=== PATIENT | female | born 1965 | race Caucasian/White ===

== ENCOUNTER → 2017-05-26 | Outpatient (CLI) | payer OTHER ==
--- NOTE | 2017-05-26 18:10 | Diagnostic Imaging Report ---
#[id number] - MGSCRBIL #BILATERAL FIRST EVER DIGITAL SCREENING MAMMOGRAM WITH CAD: 05/26/2017 CLINICAL: Routine screening. Baseline examination. No prior exams were available for comparison. Current study contains 4 films. The tissue of both breasts is heterogeneously dense. This may lower the sensitivity of mammography. Current study was also evaluated with a Computer Aided Detection (CAD) system. There is a possible mass in the right breast anterior depth lateral region seen on the craniocaudal view only; this is highlighted by CAD analysis. There is a mass in the left breast at 1 o'clock posterior depth; this resembles a lymph node. Scattered benign calcifications are present bilaterally. No other significant masses or calcifications are seen in either breast. IMPRESSION: INCOMPLETE: NEEDS ADDITIONAL IMAGING EVALUATION The possible mass in the right breast anterior depth lateral region seen on the craniocaudal view only is indeterminate. Additional views with possible ultrasound are recommended. The mass in the left breast at 1 o'clock posterior depth is indeterminate. Additional views with possible ultrasound are recommended. The patient will be contacted by the Mammography Department to schedule this appointment. Octavio Austin Jr., D.O. cw/:05/26/2017 12:39:34 Mems Engineer: Kay BROWER)(Darinel), [facility] letter sent: Additional Imaging Needed Mammogram BI-RADS: 0 Indeterminate
== END ==
LOC: MAMMO 08:26
PROVIDERS: ATTEND Internal Medicine
DX: Z12.31 Encounter for screening mammogram for malignant neoplasm of breast (principal)
CPT/HCPCS: 77067

== ENCOUNTER → 2017-06-08 | Outpatient (CLI) | payer OTHER ==
--- NOTE | 2017-06-08 16:08 | Diagnostic Imaging Report ---
#[id number] - MGDXBIL #BILATERAL DIGITAL DIAGNOSTIC MAMMOGRAM WITH SPOT COMPRESSION: 06/08/2017 Comparison is made to exam dated: 05/26/2017 mammogram - [facility]. Current study contains 7 films. The tissue of both breasts is heterogeneously dense. This may lower the sensitivity of mammography. Focal spot compression of the right breast area of interest reveals no abnormality of significance. Focal spot comression of a 1 cm oval mass in the left breast at 1 o'clock posterior depth. This resembles a lymph node or a cyst but is indeterminate. A single benign calcification in the right breast is noted. No other significant masses, calcifications, or other findings are seen in either breast. IMPRESSION: INCOMPLETE: NEEDS ADDITIONAL IMAGING EVALUATION The 1 cm oval mass in the left breast is indeterminate. An ultrasound is recommended and will be performed today. Octavio Austin Jr., D.O. cw/:06/08/2017 13:22:10 Construction Rigger: Kay MIKE(R)(M), [facility] letter sent: Additional Imaging Needed Mammogram BI-RADS: 0 Indeterminate
--- NOTE | 2017-06-08 16:08 | Diagnostic Imaging Report ---
#[id number] - USBRELIMLT ULTRASOUND OF THE LEFT BREAST : 06/08/2017 Comparison is made to exams dated: 06/08/2017 mammogram and 05/26/2017 mammogram - [facility]. Color flow and real-time ultrasound were performed on the left breast in the area of interest in the upper outer aspect. No mass, lymph node or cyst is noted that would correspond to the mammographic finding. IMPRESSION: PROBABLY BENIGN - FOLLOW-UP RECOMMENDED A follow-up mammogram in 6 months is recommended to demonstrate stability. The patient was notified of the need for mammographic followup as the finding is not demonstrated on todays ultrasound. Octavio Austin Jr., D.O. cw/:06/08/2017 13:28:35 Real Estate Sales Associate: TAMICA JAMES, [facility] letter sent: Followup Recommended Ultrasound BI-RADS: 3 Probably benign
== END ==
LOC: MAMMO 08:12
PROVIDERS: ATTEND Internal Medicine
DX: N63.20 Unspecified lump in the left breast, unspecified quadrant (principal)
CPT/HCPCS: 77066

== ENCOUNTER → 2017-06-28 | Day surgery (SDC) | payer OTHER ==
[~2017-06-28] MED LIST: LIDOCAINE HCL 2% LOCAL INJ 5 ML SDV VIAL INJ ONE; LISINOPRIL10 MG PO; MIDAZOLAM HCL 2 MG/2 ML VIAL ONE; PROPOFOL IV EMULSION 10 MG/ML 20 ML VIAL ONE
--- OUTSIDE RECORDS SUMMARY | 2017-06-28 10:07 | XMS REPORT | Clinical Summary ---
Author Author [facility] [employer] [place] [employer] Address Unknown Phone Unavailable Care Team Providers Care Aircraft Maintenance Technician Name Role Phone Durga Sanford MD PCP Allergies Active Allergy Reactions Severity Noted Date Comments Penicillins Hives Medium 02/24/2017 Current Medications Prescription Sig. Disp. Refills Start End Date Status Date lisinopril Take 10 mg by mouth every 02/23/20 Active (PRINIVIL,ZESTRIL) 10 mg morning. 17 tablet levoFLOXacin (LEVAQUIN) Take 1 tablet (750 mg 5 tablet 0 03/01/20 750 MG tablet total) by mouth daily for 17 17 5 days. Active Problems Problem Noted Date Pneumonia 02/27/2017 Influenza A 02/24/2017 Encounters Date Type Specialty Care Team Description 02/24/2017 [facility] General Internal Medicine Kwasi Foster MD Influenza A (Primary Dx); - Encounter Larissa Begum MD Pneumonia of left lower 03/01/2017 Greg Hallman MD lobe due to influenza A virus after 06/27/2016 Social History Tobacco Use Types Packs/Day Years Used Date Never Smoker Smokeless Tobacco: Never Used Alcohol Use Drinks/Week oz/Week Comments Yes occasionally Sex Assigned at Date Recorded Not on file Last Filed Vital Signs Vital Sign Reading Time Taken Blood Pressure 135/85 03/01/2017 6:56 AM DELICATESSEN CLERK Pulse 81 03/01/2017 3:20 PM DELICATESSEN CLERK Temperature 36.8 C (98.3 F) 03/01/2017 6:56 AM DELICATESSEN CLERK Respiratory Rate 16 03/01/2017 3:20 PM DELICATESSEN CLERK Oxygen Saturation 97% 03/01/2017 3:13 PM DELICATESSEN CLERK Inhaled Oxygen - - Concentration Weight 139 kg (307 lb) 02/24/2017 11:32 AM DELICATESSEN CLERK Height 162.6 cm (5' 4") 02/24/2017 11:32 AM DELICATESSEN CLERK Body Mass Index 52.7 02/24/2017 11:32 AM DELICATESSEN CLERK Plan of Treatment Health Maintenance Due Date Last Done Comments PAP SMEAR 12/04/1987 COLONOSCOPY 2016 MAMMOGRAM 2016 INFLUENZA VACCINE 10/11/2017 Results * POC glucose (03/01/2017 5:53 AM) Only the most recent of 9 results within the time period is included. Component Value Ref Range POC glucose 101 (H) 65 - 99 mg/dL Comment: Meter ID: [id number] Coremaker Machine: Araceli Abreu Specimen Performing Laboratory [facility] DEPARTMENT OF PATHOLOGY AND GENOMIC MEDICINE [address] [place] [address] * Blood culture, aerobic & anaerobic (02/28/2017 10:11 AM) Only the most recent of 4 results within the time period is included. Component Value Ref Range Blood culture isolate No growth after 5 days of incubation. Comment: Specimen Information Specimen Source: Blood Specimen Site: Arm, right Specimen Performing Laboratory Blood - Arm, right [facility] DEPARTMENT OF PATHOLOGY AND GENOMIC MEDICINE [address] [place] [address] * MRSA screen culture (02/27/2017 1:43 PM) Component Value Ref Range MRSA screen culture No Methicillin Resistant Staphylococcus aureus isolate isolated. Comment: Specimen Information Specimen Source: Nares Specimen Site: Left Specimen Performing Laboratory Nares - Left [facility] DEPARTMENT OF PATHOLOGY AND GENOMIC MEDICINE [address] [place] [address] * Streptococcus pneumoniae urinary antigen (02/27/2017 1:42 PM) Component Value Ref Range Strep pneumo urinary Ag Negative for Streptococcus pneumoniae antigen. Comment: Specimen Information Specimen Source: Urine Specimen Site: Urine, clean catch Specimen Performing Laboratory Urine - Urine, clean [facility] DEPARTMENT OF PATHOLOGY AND GENOMIC MEDICINE catch [address] [place] [address] * Legionella urinary antigen (02/27/2017 1:42 PM) Component Value Ref Range Legionella urinary Negative for Legionella serogroup 1 antigen. antigen Comment: Specimen Information Specimen Source: Urine Specimen Site: Urine, clean catch Specimen Performing Laboratory Urine - Urine, clean [facility] OF PATHOLOGY [place] [address] * Estimated GFR (02/27/2017 5:40 AM) Only the most recent of 4 results within the time period is included. Component Value Ref Range GFR Non Af Amer >90 mL/min/1.73 m2 GFR Af Amer >90 mL/min/1.73 m2 Comment: Chronic kidney disease: <60 mL/min/1.73m2 Kidney failure: <15 mL/min/1.73m2 The estimated GFR is calculated from the IDMS-traceable Modification of Diet in Renal Disease Equation. The accuracy of the calculation is poor when the creatinine is normal. Calculated values >90 mL/min/1.73m2 are not reported. This equation has not been validated in children (<18 years), women, the elderly (>70 years), or ethnic groups other than Caucasians and Americans. Specimen Performing Laboratory Plasma specimen [facility] DEPARTMENT OF PATHOLOGY AND GENOMIC MEDICINE [id number] [place] [address] [place] [address] * Manual differential (02/27/2017 5:40 AM) Only the most recent of 2 results within the time period is included. Component Value Ref Range Manual differential PERFORMED Neutrophils 89.0 (H) 39.0 - 69.0 % Lymphocytes 8.0 (L) 25.0 - 45.0 % Monocytes 3.0 0.0 - 10.0 % Eosinophils 0.0 0.0 - 5.0 % Basophils 0.0 0.0 - 1.0 % Metamyelocytes 0 % Promyelocytes 0 % Platelet slide review adequate Specimen Performing Laboratory [facility] DEPARTMENT OF PATHOLOGY AND GENOMIC MEDICINE [address] [place] [address] * CBC with platelet and differential (02/27/2017 5:40 AM) Only the most recent of 4 results within the time period is included. Component Value Ref Range WBC 7.72 4.50 - 11.00 k/uL RBC 3.84 (L) 4.20 - 5.50 m/uL HGB 10.8 (L) 12.0 - 16.0 g/dL HCT 32.3 (L) 37.0 - 47.0 % MCV 84.1 82.0 - 100.0 fL MCH 28.1 27.0 - 34.0 pg MCHC 33.4 31.0 - 37.0 g/dL RDW - SD 45.9 37.0 - 55.0 fL MPV 8.9 8.8 - 13.2 fL Platelet count 191 150 - 400 k/uL Nucleated RBC 0.00 /100 WBC Neutrophils 89.0 (H) 39.0 - 69.0 % Lymphocytes 8.0 (L) 25.0 - 45.0 % Monocytes 3.0 0.0 - 10.0 % Eosinophils 0.0 0.0 - 5.0 % Basophils 0.0 0.0 - 1.0 % Specimen Performing Laboratory Blood [facility] PATHOLOGY AND [address] [place] [address] * Magnesium level (02/27/2017 5:40 AM) Only the most recent of 4 results within the time period is included. Component Value Ref Range Magnesium 2.0 1.6 - 2.6 mg/dL Specimen Performing Laboratory Plasma specimen [address] [place] [address] * Basic metabolic panel (02/27/2017 5:40 AM) Only the most recent of 3 results within the time period is included. Component Value Ref Range Sodium 136 135 - 148 mEq/L Potassium 3.8 3.5 - 5.0 mEq/L Chloride 101 98 - 112 mEq/L CO2 24 24 - 31 mEq/L Anion gap 11 7 - 15 mEq/L Comment: Starting from June , anion gap calculation no longer incorporates potassium. Please note the change. BUN 10 6 - 20 mg/dL Creatinine 0.5 0.5 - 0.9 mg/dL Glucose 114 (H) 65 - 99 mg/dL Calcium 8.3 8.3 - 10.2 mg/dL Specimen Performing Laboratory Plasma specimen [facility] PATHOLOGY [address] [place] [address] * FL Lumbar Puncture by Radiology (02/26/2017 4:45 PM) Specimen Performing Laboratory [address] [address] Narrative EXAMINATION:FL LUMBAR PUNCTURE REASON FOR EXAMINATION:Encephalitis, ENCEPHALOPATHY COMPARISON: None FINDINGS: After explanation of risk and benefits, the patient was brought to the vascular suite. An informed consent was obtained. The skin overlying the lumbar spine was prepped and draped in sterile manner. The skin was anesthetized with 1% lidocaine. Using fluoroscopic guidance, a 20-gauge spinal needle was introduced into the thecal sac at the level of L4. 12 cc of clear spinal fluid were obtained. Following completion of the procedure, the needle was removed. Hemostasis was obtained. There were no intraoperative complications. CONSCIOUS SEDATION: None Fluoroscopy time:0.75 minutes number of fluoroscopic images obtained: 1 The opening pressure was 14 cm of water. IMPRESSION: 1. Status post lumbar puncture. 2. The patient was given conscious sedation as described above. 3. Fluoroscopic guidance was used for this procedure. [facility]-[id number] Procedure Note [facility], Radiology Results Incoming - 02/27/2017 2:21 PM DELICATESSEN CLERK EXAMINATION: FL LUMBAR PUNCTURE REASON FOR EXAMINATION: Encephalitis, ENCEPHALOPATHY COMPARISON: None FINDINGS: After explanation of risk and benefits, the patient was brought to the vascular suite. An informed consent was obtained. The skin overlying the lumbar spine was prepped and draped in sterile manner. The skin was anesthetized with 1% lidocaine. Using fluoroscopic guidance, a 20-gauge spinal needle was introduced into the thecal sac at the level of L4. 12 cc of clear spinal fluid were obtained. Following completion of the procedure, the needle was removed. Hemostasis was obtained. There were no intraoperative complications. CONSCIOUS SEDATION: None Fluoroscopy time: 0.75 minutes number of fluoroscopic images obtained: 1 The opening pressure was 14 cm of water. IMPRESSION: 1. Status post lumbar puncture. 2. The patient was given conscious sedation as described above. 3. Fluoroscopic guidance was used for this procedure. [facility]-[id number] * CSF pathologist consult (02/26/2017 4:35 PM) Component Value Ref Range CSF pathologist consult DoneComment: per dr. fatima agree with cell count Specimen Performing Laboratory Cerebrospinal fluid [facility] DEPARTMENT OF PATHOLOGY AND GENOMIC MEDICINE [address] [place] [address] * AFB culture (02/26/2017 4:35 PM) Component Value Ref Range AFB culture isolate No growth after 6 weeks of incubation. Comment: Specimen Information Specimen Source: CSF (Spinal Fluid) Specimen Site: Lumbar puncture Specimen Performing Laboratory Cerebrospinal fluid - [facility] DEPARTMENT OF PATHOLOGY AND GENOMIC MEDICINE Lumbar puncture [address] [place] [address] * Cryptococcal antigen, screen (02/26/2017 4:35 PM) Component Value Ref Range Cryptococcal Ag Negative - No Cryptococcus antigen detected. Comment: Specimen Information Specimen Source: CSF (Spinal Fluid) Specimen Site: Lumbar puncture Specimen Performing Laboratory Cerebrospinal fluid [facility] DEPARTMENT OF PATHOLOGY AND GENOMIC MEDICINE [address] [place] [address] * Gram stain (02/26/2017 4:35 PM) Component Value Ref Range Gram stain isolate No WBC's or organisms seen. Comment: Specimen Information Specimen Source: CSF (Spinal Fluid) Specimen Site: Lumbar puncture Specimen Performing Laboratory Cerebrospinal fluid [facility] DEPARTMENT OF PATHOLOGY AND [facility] MEDICINE [address] [place] [address] * CSF culture (02/26/2017 4:35 PM) Component Value Ref Range CSF culture isolate No growth after 3 days. Comment: Specimen Information Specimen Source: CSF (Spinal Fluid) Specimen Site: Lumbar puncture Specimen Performing Laboratory Cerebrospinal fluid - [facility] DEPARTMENT OF PATHOLOGY AND [facility] Lumbar puncture [address] [place] [address] * Fungus culture (02/26/2017 4:35 PM) Component Value Ref Range Fungus culture isolate No growth after 4 weeks of incubation. Comment: Specimen Information Specimen Source: CSF (Spinal Fluid) Specimen Site: Lumbar puncture Specimen Performing Laboratory Cerebrospinal fluid - [facility] DEPARTMENT OF PATHOLOGY AND [facility] Lumbar puncture [address] [place] [address] * CSF cell count with differential (02/26/2017 4:35 PM) Component Value Ref Range Color, CSF Colorless Appearance, CSF Clear CSF supernatant Colorless RBC, CSF 0Comment: OTHER SIDE IS 0 0 - 1 /CMM WBC, CSF 1Comment: OTHER SIDE IS 0 0 - 5 /CMM CSF mononuclear cell 0/CMM Neutrophils, CSF 87 % Lymphocytes, CSF 13 % Specimen Performing Laboratory Cerebrospinal fluid [facility] DEPARTMENT PATHOLOGY [address] [place] [address] * Protein, CSF (02/26/2017 4:35 PM) Component Value Ref Range Protein, CSF 18 15 - 45 mg/dL Specimen Performing Laboratory Cerebrospinal fluid [facility] DEPARTMENT OF PATHOLOGY AND [address] [place] [address] * Glucose level, CSF (02/26/2017 4:35 PM) Component Value Ref Range Glucose, CSF 82 (H) 40 - 70 mg/dL Specimen Performing Laboratory Cerebrospinal fluid [facility] DEPARTMENT PATHOLOGY AND [address] [place] [place] [address] * Ammonia level (02/26/2017 1:25 PM) Component Value Ref Range Ammonia 23 11 - 51 umol/L Specimen Performing Laboratory Blood [facility] DEPARTMENT PATHOLOGY AND [address] [place] [place] [address] * Arterial blood gas (02/26/2017 12:26 PM) Component Value Ref Range pH, arterial 7.50 (H) 7.35 - 7.45 pCO2, arterial 30 (L) 35 - 45 mmHg pO2, arterial 56 (L) 80 - 90 mmHg Bicarbonate, arterial 24.7 21.0 - 28.0 mmol/L Base excess, arterial 1 -2 - 2 mEq/L O2 saturation, arterial 92 (L) 95 - 100 % FiO2, inspired O2% 36 % Specimen Performing Laboratory Blood [facility] DEPARTMENT OF PATHOLOGY AND GENOMIC MEDICINE [address] [place] [address] * CT Head Wo Contrast (02/26/2017 10:14 AM) Specimen Performing Laboratory [facility] [address] [place] [address] Narrative Examination: CT HEAD WO CONTRAST Clinical History: HEADACHE Comparison: NONE Technique: Multiple axial CT images of the brain are obtained without the use of intravenous contrast. CT scans are performed using radiation dose reduction techniques. Technical factors are evaluated and adjusted to ensure appropriate moderation of exposure. Automated dose management technology is applied to adjust radiation dose to minimize exposure, while achieving a diagnostic image. FINDINGS: The visualized paranasal sinuses are clear. The mastoid air cells are well aerated. The globes and optic nerves are unremarkable. The ventricles are symmetrical. There is no mass effect or any midline shift. There is no evidence of any extra-axial fluid collection. There is no parenchymal hemorrhage or mass lesion. There is maintenance of the man-white junction. The posterior fossa does not demonstrate any masses. IMPRESSION: 1. There Is no acute intracranial abnormality. [id number] Procedure Note Interface, Radiology Results Incoming - 02/26/2017 10:18 AM DELICATESSEN CLERK Examination: CT HEAD WO CONTRAST Clinical History: HEADACHE Comparison: NONE Technique: Multiple axial CT images of the brain are obtained without the use of intravenous contrast. CT scans are performed using radiation dose reduction techniques. Technical factors are evaluated and adjusted to ensure appropriate moderation of exposure. Automated dose management technology is applied to adjust radiation dose to minimize exposure, while achieving a diagnostic image. FINDINGS: The visualized paranasal sinuses are clear. The mastoid air cells are well aerated. The globes and optic nerves are unremarkable. The ventricles are symmetrical. There is no mass effect or any midline shift. There is no evidence of any extra-axial fluid collection. There is no parenchymal hemorrhage or mass lesion. There is maintenance of the man-white junction. The posterior fossa does not demonstrate any masses. IMPRESSION: 1. There Is no acute intracranial abnormality. [facility]-[id number] * Lactic acid level (02/26/2017 4:48 AM) Component Value Ref Range Lactic acid 0.8 0.5 - 2.2 mmol/L Specimen Performing Laboratory Plasma specimen [facility] DEPARTMENT OF PATHOLOGY AND GENOMIC MEDICINE [address] [place] [address] * Comprehensive metabolic panel (02/26/2017 4:48 AM) Component Value Ref Range Sodium 138 135 - 148 mEq/L Potassium 4.1 3.5 - 5.0 mEq/L Chloride 103 98 - 112 mEq/L CO2 22 (L) 24 - 31 mEq/L Anion gap 13 7 - 15 mEq/L Comment: Starting from June , anion gap calculation no longer incorporates potassium. Please note the change. BUN 5 (L) 6 - 20 mg/dL Creatinine 0.5 0.5 - 0.9 mg/dL Glucose 120 (H) 65 - 99 mg/dL Calcium 8.1 (L) 8.3 - 10.2 mg/dL Protein 7.1 6.3 - 8.3 g/dL Comment: [place] 4.6-7.0 g/dL 1 week 4.4-7.6 g/dL 7 months-1year 5.1-7.3 g/dL 1-2 years 5.6-7.5 g/dL >3 years 6.0-8.0 g/dL 18-150 6.3-8.3 g/dL Albumin 3.2 (L) 3.5 - 5.0 g/dL A/G ratio 0.8 0.7 - 3.8 Alkaline phosphatase 64 35 - 104 U/L AST 10 10 - 35 U/L ALT 12 5 - 50 U/L Total bilirubin 0.4 0.0 - 1.2 mg/dL Specimen Performing Laboratory Plasma specimen [facility] DEPARTMENT OF PATHOLOGY AND GENOMIC MEDICINE [address] [place] [address] * XR Chest 1 Vw Portable (02/25/2017 7:15 AM) Only the most recent of 2 results within the time period is included. Specimen Performing Laboratory [address] [address] Narrative EXAMINATION:XR CHEST 1 VW PORTABLE CLINICAL HISTORY:SHORTNESS OF BREATH COMPARISON:February 24, 2017 just IMPRESSION: Development of moderate patchy infiltrate and/or atelectasis right base Moderate patchy infiltrate left base unchanged Mild hypoinflation of the lungs No effusion. No pneumothorax. Cardiomediastinal silhouette remains normal size [id number] Procedure Note Hm Interface, Radiology Results Incoming - 02/25/2017 7:53 AM DELICATESSEN CLERK EXAMINATION: XR CHEST 1 VW PORTABLE CLINICAL HISTORY: SHORTNESS OF BREATH COMPARISON: February 24, 2017 just IMPRESSION: Development of moderate patchy infiltrate and/or atelectasis right base Moderate patchy infiltrate left base unchanged Mild hypoinflation of the lungs No effusion. No pneumothorax. Cardiomediastinal silhouette remains normal size [id number] * Lactic acid level, SEPSIS - Now and repeat 2x every 3 hours (02/24/2017 6:05 PM) Only the most recent of 3 results within the time period is included. Component Value Ref Range Lactic acid 4.0 (HH) 0.5 - 2.2 mmol/L Comment: Results called to and read back by GRACIELA MARTINEZ 3 MAIN at 02/24/2017 19:07 by JUAN Specimen Performing Laboratory Plasma specimen [facility] DEPARTMENT OF PATHOLOGY AND GENOMIC MEDICINE [address] [place] [address] * hCG qualitative, urine screen (02/24/2017 5:19 PM) Component Value Ref Range hCG qualitative, urine Negative Negative Comment: The manufacturers stated sensitivity of HcG test for serum is >/=10 mIU/ml and urine is >/=20mIU/ml. Specimen Performing Laboratory Urine [facility] DEPARTMENT OF PATHOLOGY AND [facility] MEDICINE [address] [place] [address] * Pv duplex venous lower extremity (02/24/2017 3:45 PM) Specimen Performing Laboratory [facility] [address] [place] [address] Narrative The left lower extremity was negative for deep vein thrombosis. * ECG 12 lead (02/24/2017 1:13 PM) Component Value Ref Range Ventricular rate 119 Atrial rate 119 DC interval 116 QRSD interval 70 QT interval 328 QTC interval 461 P axis 1 49 QRS axis 1 35 T wave axis 50 EKG impression Sinus tachycardia with premature supraventricular complexes-Nonspecific ST abnormality-Abnormal ECG-No previous ECGs available- Specimen Performing Laboratory [facility] [address] [place] [address] * Partial thromboplastin time, activated (02/24/2017 12:31 PM) Component Value Ref Range PTT 35.4 23.0 - 36.0 sec Comment: PTT therapeutic range for unfractionated heparin is 61.0-112.0 seconds which corresponds to Anti-Xa 0.3-0.7 U/ml. Specimen Performing Laboratory Blood [facility] DEPARTMENT OF PATHOLOGY AND GENOMIC MEDICINE [address] [place] [address] [place] [address] * Prothrombin time with INR (02/24/2017 12:31 PM) Component Value Ref Range Prothrombin time 13.4 12.0 - 15.0 sec INR 1.0 Comment: The International Normalized Ratio (INR) is a therapeutic monitoring tool for patients who are stable on oral anticoagulant therapy. An INR of 2.0-3.0 is suggested for deep vein thrombosis/pulmonary embolism. Specimen Performing Laboratory Blood [facility] DEPARTMENT OF PATHOLOGY AND [facility] [address] [place] [address] [place] [address] * Influenza antigen (02/24/2017 11:46 AM) Component Value Ref Range Influenza antigen Positive for Influenza A antigen. Called to Zohreh/ER 02/24/2017 12:37 by [id number] (A) Comment: Specimen Information Specimen Source: Nares Specimen Site: Left Specimen Performing Laboratory Nares - Left [facility] DEPARTMENT OF PATHOLOGY AND GENOMIC MEDICINE [id number] [place] [address] [place] [address] after 06/27/2016 Insurance Payer Benefit Subscriber ID Type Phone Address Plan / Group CIGKARLA CIGKARLA OPEN xxxxxxxxxxx HMO ACCESS/NET WORK
--- OUTSIDE RECORDS SUMMARY | 2017-06-28 10:07 | XMS REPORT ---
Author Author [facility] Address Unknown Phone Unavailable Care Team Providers Care Physical Trainer Name Role Phone ROBINSON IBARRA Unavailable Unavailable Problems This patient has no known problems. Allergies, Adverse Reactions, Alerts This patient has no known allergies or adverse reactions. Medications This patient has no known medications. Results Test Description Test Time Test Comments Text Results Atomic Results Result Comments US BREAST LIMITED LEFT [place] [address] Patient Name: CEDRIC MILAN MR #: [id number] : 1965 Age/Sex: 51/F Req #: [id number] [facility] Physician: Ordered by: ROBINSON IBARRA MD Report #: [id number] Location: MAMMO Room/Bed: Procedure: [id number] US/US BREAST LIMITED LEFT Exam Date: Exam Time: REPORT STATUS: Signed #[id number] - USBRELIMLT ULTRASOUND OF THE LEFT BREAST : 06/08/2017 Comparison is made to exams dated: 06/08/2017 mammogram and 05/26/2017 mammogram - [facility]. Color flow and real-time ultrasound were performed on the left breast in the area of interest in the upper outer aspect. No mass, lymph node or cyst is noted that would correspond to the mammographic finding. IMPRESSION: PROBABLY BENIGN - FOLLOW-UP RECOMMENDED A follow-up mammogram in 6 months is recommended to demonstrate stability. The patient was notified of the need for mammographic followup as the finding is not demonstrated on todays ultrasound. Sophia Austin Jr., D.O. cw/:06/08/2017 13:28:35 Electric Organ Inspector And Repairer: TAMICA JAMES, [facility] letter sent: Followup Recommended Ultrasound BI- RADS: 3 Probably benign Dictated By: SOPHIA AUSTIN DO 1328 Transcribed By: DORINDA on 1328 COPY TO: ROBINSON IBARRA MD MAMMOGRAPHY DIGITAL DX BILAT [place] [address] Patient Name: CEDRIC MILAN MR #: [id number] : 1965 Age/Sex: 51/F Req #: [id number] [facility] Physician: Ordered by: ROBINSON IBARRA MD Report #: [id number] Location: MAMMO Room/Bed: Procedure: [id number] MG/MAMMOGRAPHY DIGITAL DX BILAT Exam Date: 06/08/17 Exam Time: 825 REPORT STATUS: Signed # [id number] - [id number] #BILATERAL DIGITAL DIAGNOSTIC MAMMOGRAM WITH SPOT COMPRESSION: 06/08/2017 Comparison is made to exam dated: 05/26/2017 mammogram - [facility]. Current study contains 7 films. The tissue of both breasts is heterogeneously dense. This may lower the sensitivity of mammography. Focal spot compression of the right breast area of interest reveals no abnormality of significance. Focal spot comression of a 1 cm oval mass in the left breast at 1 o'clock posterior depth. This resembles a lymph node or a cyst but is indeterminate. A single benign calcification in the right breast is noted. No other significant masses, calcifications, or other findings are seen in either breast. IMPRESSION: INCOMPLETE: NEEDS ADDITIONAL IMAGING EVALUATION The 1 cm oval mass in the left breast is indeterminate. An ultrasound is recommended and will be performed today. Sophia Austin Jr., D.O. cw/: 13:22:10 Electric Organ Inspector And Repairer: Kay MIKE(Artis)(Darinel), [facility] letter sent: Additional Imaging Needed Mammogram BI-RADS: 0 Indeterminate Dictated By: SOPHIA AUSTIN DO 1322 Transcribed By: DORINDA on 06/08/17 1322 COPY TO: ROBINSON IBARRA MD MAMMOGRAPHY DIGITAL SCR BILAT [place] [address] Patient Name: CEDRIC MILAN MR #: [id number] : 1965 Age/Sex: 51/F Req #: [id number] [facility] Physician: Ordered by: ROBINSON IBARRA MD Report #: [id number] Location: MAMMO Room/Bed: Procedure: [id number] MG/MAMMOGRAPHY DIGITAL SCR BILAT Exam Date: 05/26/17 Exam Time: 0840 REPORT STATUS: Signed # [id number] - [id number] #BILATERAL FIRST EVER DIGITAL SCREENING MAMMOGRAM WITH CAD: 05/26/2017 CLINICAL: Routine screening. Baseline examination. No prior exams were available for comparison. Current study contains 4 films. The tissue of both breasts is heterogeneously dense. This may lower the sensitivity of mammography. Current study was also evaluated with a Computer Aided Detection (CAD) system. There is a possible mass in the right breast anterior depth lateral region seen on the craniocaudal view only ; this is highlighted by CAD analysis. There is a mass in the left breast at 1 o'clock posterior depth; this resembles a lymph node. Scattered benign calcifications are present bilaterally. No other significant masses or calcifications are seen in either breast. IMPRESSION: INCOMPLETE: NEEDS ADDITIONAL IMAGING EVALUATION The possible mass in the right breast anterior depth lateral region seen on the craniocaudal view only is indeterminate. Additional views with possible ultrasound are recommended. The mass in the left breast at 1 o'clock posterior depth is indeterminate. Additional views with possible ultrasound are recommended. The patient will be contacted by the Mammography Department to schedule this appointment. Sophia Austin Jr., D.O. cw/:05/26/2017 12:39:34 Electric Organ Inspector And Repairer: Kay BROWER)(Darinel), [facility] letter sent: Additional Imaging Needed Mammogram BI-RADS: 0 Indeterminate Dictated By: SOPHIA AUSTIN DO 1239 Transcribed By: DORINDA on 05/26/17 1239 COPY TO: ROBINSON IBARRA MD
== END | disposition home or self-care (01) ==
LOC: OR 10:04
PROVIDERS: ATTEND Internal Medicine Gastroenterology
DX: Z12.11 Encounter for screening for malignant neoplasm of colon (principal); K64.8 Other hemorrhoids; I10 Essential (primary) hypertension; G47.33 Obstructive sleep apnea (adult) (pediatric); T78.40XA Allergy, unspecified, initial encounter; E66.01 Morbid (severe) obesity due to excess calories; X58.XXXA Exposure to other specified factors, initial encounter; Z68.43 Body mass index [BMI] 50.0-59.9, adult
CPT/HCPCS: 45378; 81025; J2001; J2250

== ENCOUNTER → 2017-12-05 | Outpatient (CLI) | payer OTHER ==
[~2017-12-05] MED LIST changes: -LIDOCAINE HCL 2% LOCAL INJ 5 ML SDV VIAL INJ ONE; -MIDAZOLAM HCL 2 MG/2 ML VIAL ONE; -PROPOFOL IV EMULSION 10 MG/ML 20 ML VIAL ONE
--- NOTE | 2017-12-06 09:34 | Diagnostic Imaging Report ---
#[id number] - MGDXLT #UNILATERAL LEFT DIGITAL DIAGNOSTIC MAMMOGRAM WITH CAD SHORT-TERM FOLLOW-UP: 12/05/2017 Comparison is made to exams dated: 06/08/2017 mammogram and 05/26/2017 mammogram - [facility]. Current study contains 4 films. The tissue of the left breast is heterogeneously dense. This may lower the sensitivity of mammography. Current study was also evaluated with a Computer Aided Detection (CAD) system. No significant masses, calcifications, or other findings are seen in the breast. There has been no significant interval change. IMPRESSION: NEGATIVE There is no mammographic evidence of malignancy. A 1 year screening mammogram is recommended. The patient will be notified by letter of the results. Octavio Austin Jr., D.O. cw/:12/05/2017 14:17:41 Batch Trucker: Kay BROWER)(Darinel), [facility] letter sent: Normal Exam Mammogram BI-RADS: 1 Negative
== END ==
LOC: MAMMO 12:57
PROVIDERS: ATTEND Internal Medicine
DX: N64.59 Other signs and symptoms in breast (principal)

== ENCOUNTER → 2018-05-29 | Outpatient (CLI) | payer OTHER | LOC: MAMMO 13:19 | PROVIDERS: ATTEND Internal Medicine | DX: Z12.31 Encounter for screening mammogram for malignant neoplasm of breast (principal) | CPT/HCPCS: 77067 ==

== ENCOUNTER → 2018-06-26 | Outpatient (CLI) | payer OTHER ==
--- NOTE | 2018-06-27 08:58 | Diagnostic Imaging Report ---
#[id number] - USBRELIMRT ULTRASOUND OF THE RIGHT BREAST : 06/26/2018 Comparison is made to exam dated: 06/26/2018 mammogram - [facility]. Color flow and real-time ultrasound were performed on the right breast with scanning in the outer aspect of the right breast from 6 o'clock to 12 o'clock. -No cystic or solid lesion is identified. IMPRESSION: NEGATIVE There is no sonographic evidence of malignancy. A 1 year screening mammogram is recommended. Octavio Austin Jr., D.O. cw/:06/26/2018 15:48:26 Assurance Analyst: SHUN GELLER RDMS, [facility] letter sent: Normal Exam Ultrasound BI-RADS: 1 Negative
--- NOTE | 2018-06-27 08:58 | Diagnostic Imaging Report ---
#[id number] - MGDXRT #UNILATERAL RIGHT DIGITAL DIAGNOSTIC MAMMOGRAM WITH CAD: 06/26/2018 Comparison is made to exams dated: 05/29/2018 mammogram, 12/05/2017 mammogram, 06/08/2017 mammogram and 05/26/2017 mammogram - [facility]. Current study contains 2 films. The tissue of the right breast is heterogeneously dense. This may lower the sensitivity of mammography. Current study was also evaluated with a Computer Aided Detection (CAD) system. No significant masses, calcifications, or other findings are seen in the breast. Focal spot compression fails to reveal a mass. However, focused ultrasound will follow this exam. There has been no significant interval change. IMPRESSION: BENIGN There is no mammographic evidence of malignancy. A 1 year screening mammogram is recommended. The patient will be notified by letter of the results. Octavio Austin Jr., D.O. cw/:06/26/2018 15:59:09 Research Food Technologist: Kay MIKE(R)(M), [facility] letter sent: Compared to Prior B9 Mammogram BI-RADS: 2 Benign
== END ==
LOC: MAMMO 13:53
PROVIDERS: ATTEND Internal Medicine
DX: R92.2 Inconclusive mammogram (principal)

== ENCOUNTER → 2021-12-24 | Outpatient (CLI) | payer OTHER | LOC: MAMMO 10:27 | PROVIDERS: ATTEND Internal Medicine | DX: Z12.31 Encounter for screening mammogram for malignant neoplasm of breast (principal) | CPT/HCPCS: 77067 ==

== ENCOUNTER → 2023-11-14 | Outpatient (REF) | payer OTHER | LOC: MAMMO 08:01 | PROVIDERS: ATTEND Internal Medicine | DX: Z12.31 Encounter for screening mammogram for malignant neoplasm of breast (principal) | CPT/HCPCS: 77067 ==

== ENCOUNTER → 2024-12-03 | Outpatient (REF) | payer OTHER | LOC: MAMMO 10:48 | PROVIDERS: ATTEND Internal Medicine | DX: Z12.31 Encounter for screening mammogram for malignant neoplasm of breast (principal) | CPT/HCPCS: 77067 ==